=== PATIENT | male | born 1965 | race Caucasian/White ===

== ENCOUNTER 2017-04-04 17:13 | Emergency (ER) | payer OTHER ==
[2017-04-04 17:28] VITALS: BP 177/89; PULSE 74; RESP 16; TEMP 98.4; O2SAT 97
[2017-04-04] MEDS ORDERED: Lidocaine 1% Inj (20ml) INFIL STA (17:38)
[2017-04-04] MEDS ORDERED: Lidocaine 1% Inj (20ml) ONE (17:48)
[2017-04-04] MEDS ORDERED: Bacitracin 500 Units/gm Oint Foilpak UD TOP ONE (19:35)
[2017-04-04] MEDS ORDERED: Bacitracin 500 Units/gm Oint Foilpak UD ONE (19:39)
--- NOTE | 2017-04-04 19:39 | C.PDOC ---
History Of Present Illness 52 yo male c/o fishing hook stuck in R ring finger just prior to arrival. Pt notes he was organizing his fishing equipment and accidentally got stuck. Notes he tried removing it without success. Time Seen by Provider: 04/04/17 17:35 Chief Complaint (Nursing): Foreign Body History Per: Patient History/Exam Limitations: no limitations Onset/Duration Of Symptoms: Hrs Current Symptoms Are (Timing): Still Present Past Medical History Vital Signs: Last Vital Signs Temp 98.4 F 04/04/17 17:24 Pulse 74 04/04/17 17:24 Resp 16 04/04/17 17:24 BP 177/89 H 04/04/17 17:24 Pulse Ox 97 04/04/17 19:40 Family History: States: Unknown Family Hx - Social History Hx Alcohol Use: No Hx Substance Use: No - Immunization History Hx Tetanus Toxoid Vaccination: No Hx Influenza Vaccination: Yes (2016) Hx Pneumococcal Vaccination: No Review Of Systems Constitutional: Negative for: Fever Neurological: Negative for: Weakness, Numbness Physical Exam - Physical Exam Appears: Well, Non-toxic, No Acute Distress Skin: Warm, Dry, Other ((+) FB (fish hook) puctured in R ring finger) Head: Atraumatic, Normacephalic Eye(s): bilateral: Normal Inspection, EOMI Nose: Normal Oral Mucosa: Moist Neck: Normal, Normal ROM, Supple Chest: Symmetrical Respiratory: No Accessory Muscle Use Gastrointestinal/Abdominal: Normal Exam Back: Normal Inspection Extremity: Normal ROM, Capillary Refill (< 2 sec) Pulses: Left Radial: Normal, Right Radial: Normal Neurological/Psych: Oriented x3, Normal Speech, Normal Motor, Normal Sensation ED Course And Treatment O2 Sat by Pulse Oximetry: 97 - Other Rad Finger XR X-Ray: Interpreted by Me, Viewed By Me Interpretation: (+) FB Progress Note: Discussed wound care and wound check in two days. PT refused pain medication. Tetanus given. Laceration - Laceration Repair R 4th finger Wound Length (In cm): puncture Description Of Wound: Irregular Wound Cleansed With: Betadine, Sterile Saline Anesthesia: Lidocaine 1% Wound Examination: Irrigated With Saline Disposition - Disposition Disposition: HOME/ ROUTINE Disposition Time: 19:37 Condition: STABLE Additional Instructions: Follow up with your primary medical doctor or clinic in 2-5 days for further evaluation. Take medications as prescribed. Return to the emergency department at any time if symptoms persist or worsen. Prescriptions: Clindamycin [Cleocin] 300 mg PO Q6 #28 cap Mupirocin 2% Ointment [Bactroban Ointment] 1 appl TP TID #1 tube Instructions: Soft Tissue Foreign Body (ED) Forms: Sk[employer] ([employer]) - Clinical Impression Clinical Impression: Foreign body (FB) in soft tissue
--- NOTE | 2017-04-05 04:15 | RAD ---
PROCEDURE: Right ring finger radiographs. HISTORY: fb COMPARISON: None available. TECHNIQUE: AP radiograph of the right hand, as well as spot oblique and lateral images of ring finger were obtained. FINDINGS: RIGHT RING FINGER: No acute displaced fracture identified. Nonspecific 6 mm sclerotic focus, distal 4th metacarpal. Remainder of the right hand (as seen on the AP view) grossly unremarkable. JOINTS: No dislocation. SOFT TISSUES: Radiopaque foreign body noted at the level of the distal 4th phalanx soft tissues. Soft tissue swelling. OTHER FINDINGS: None. IMPRESSION: Radiopaque foreign body noted at the level of the distal 4th phalanx soft tissues. Soft tissue swelling.
== END 2017-04-04 19:55 | disposition home or self-care (01) ==
LOC: C.ER 17:13
DX: S60.452A Superficial foreign body of right middle finger, initial encounter (principal); W45.8XXA Other foreign body or object entering through skin, initial encounter; Z23 Encounter for immunization